=== PATIENT | male | born 1980 | race Caucasian/White ===

== ENCOUNTER 2018-07-16 23:52 | Emergency (ER) | payer SELFPAY ==
[~2018-07-16] VITALS: Ht 188 cm; Wt 93.0 kg
[2018-07-17 01:39] LABS: Basophils # (auto) 0.1 uL; Basophils % (auto) 0.5 % (0.0-2.0); Eosinophils # (auto) 0.1 uL; Eosinophils % (auto) 0.7 % (0.0-7.0); Hemoglobin 14.5 g/dL (13.5-17.5); Lymphocytes # (auto) 1.7 uL; Lymphocytes % (auto) 16.6 % (10.0-50.0); Mean Corpuscular Hgb Conc. 34.4 g/dL (32.0-36.0); Mean Corpuscular Volume 87.2 fL (80.0-100.0); Monocytes # (auto) 0.7 uL; Neutrophils # (auto) 7.6 uL; Neutrophils % (auto) 75.2 % (37.0-80.0); Platelet Count (auto) 229 10^3/uL (140-450); Red Blood Cells 4.82 10^6/uL (4.5-5.90); Red Cell Distribution Width 13.5 % (11.8-14.3); White Blood Cell 10.1 10^3/uL (4.4-10.8)
[2018-07-17 01:57] LABS: BUN/Creatinine Ratio 9.5; Calcium 8.7 mg/dL (8.5-10.1); Potassium 3.4 mmol/L (3.5-5.1)
[2018-07-17 02:00] LABS: Bilirubin, Total 1.1 mg/dL (0.2-1.0); Total Protein 7.5 g/dL (6.4-8.2)
[2018-07-17] MEDS ORDERED: SODIUM CHLORIDE 0.9% 500 ML IV ONE (02:00)
[2018-07-17 07:08] VITALS: BP 156/87
[2018-07-17] MEDS ORDERED: ONDANSETRON ODT 4 MG TAB PO ONE (08:15)
== END 2018-07-17 07:10 | disposition home or self-care (01) ==
LOC: ER 23:52 → EDBD 23:52 → ER 07-17 07:10
DX: R16.1 Splenomegaly, not elsewhere classified (principal); K62.5 Hemorrhage of anus and rectum
CPT/HCPCS: 36415; 74176; 80053; 85025; 94761; 99285; Q0162